=== PATIENT | male | born 1975 | race Two or more races ===

== ENCOUNTER 2022-09-09 16:11 | Inpatient (IN) | payer MEDICARE, MEDICAID ==
[~2022-09-09] VITALS: Ht 177.8 cm; Wt 92.0 kg
[2022-09-09 16:55] LABS: Basophils # (auto) 0.1 10 ^3/uL (0-0.2); Basophils % (auto) 0.5 % (0.0-2.0); Eosinophils # (auto) 0.1 10 ^3/uL (0-0.8); Eosinophils % (auto) 0.6 % (0.0-7.0); Hematocrit 24.1 % (41.0-53.0); Hemoglobin 7.9 g/dL (13.5-17.5); Lymphocytes # (auto) 2.2 10 ^3/uL (0.4-5.4); Lymphocytes % (auto) 20.7 % (10.0-50.0); Mean Corpuscular Hemoglobin 26.9 pg (28.0-32.0); Mean Corpuscular Volume 81.4 fL (80.0-100.0); Monocytes # (auto) 0.8 10 ^3/uL (0-1.3); Monocytes % (auto) 7.8 % (0.0-12.0); Neutrophils # (auto) 7.6 10 ^3/uL (1.6-8.6); Neutrophils % (auto) 70.4 % (37.0-80.0); Red Blood Cells 2.96 10^6/uL (4.5-5.90); White Blood Cell 10.8 10^3/uL (4.4-10.8)
[2022-09-09 17:03] LABS: Albumin 2.5 g/dL (3.4-5.0); Calcium 8.4 mg/dL (8.5-10.1); Potassium 3.7 mmol/L (3.5-5.1)
[2022-09-09 17:06] LABS: BUN/Creatinine Ratio 31.1 (10.0-20.0); Bilirubin, Total 0.2 mg/dL (0.2-1.0); Total Protein 5.6 g/dL (6.4-8.2)
[2022-09-09 17:30] LABS: Red Cell Distribution Width 23.8 % (11.8-14.3)
[2022-09-09] MEDS ORDERED: SODIUM CHLORIDE 0.9% 1,000 ML IV ONE (19:00)
[2022-09-09] MEDS ORDERED: ONDANSETRON HCL 4 MG/2 ML VIAL IV ONE (19:00)
[2022-09-09] MEDS ORDERED: PANTOPRAZOLE 40 MG/10 ML VIAL INJ IV ONE (19:00)
[2022-09-09 20:19] LABS: INR 0.99 (0.9-1.15)
[2022-09-09] MEDS ORDERED: MORPHINE SULFATE INJ 2 MG/ml SYRG IV PRN (20:45)
[2022-09-09] MEDS ORDERED: PANTOPRAZOLE 80 MG in SODIUM CHL 0.9% 100 ML IV ONE (21:30)
[2022-09-09] MEDS: PANTOPRAZOLE 40 MG/10 ML VIAL INJ IV SCH (22:00)
[2022-09-10] VITALS (8 sets, daily range): BP systolic 101–126; BP diastolic 52–67
[2022-09-10 01:21] LABS: Urine Bacteria NONE SEEN /hpf (None Seen); Urine Blood Negative /uL (Negative); Urine WBC 1 /hpf (0 - 3)
[2022-09-10 01:32] LABS: Hemoglobin 6.7 g/dL (13.5-17.5)
[2022-09-10] MEDS: PANTOPRAZOLE 40mg/50ML NS AE 50 ML IV SCH ×6 (02:30→23:03)
[2022-09-10] MEDS: SODIUM CHLORIDE 0.9% 1,000 ML IV SCH ×4 (02:32→23:03)
[2022-09-10 09:20] LABS: Basophils # (auto) 0 10 ^3/uL (0-0.2); Basophils % (auto) 0.5 % (0.0-2.0); Eosinophils # (auto) 0.1 10 ^3/uL (0-0.8); Eosinophils % (auto) 1.3 % (0.0-7.0); Hematocrit 21.6 % (41.0-53.0); Hemoglobin 7.1 g/dL (13.5-17.5); Lymphocytes # (auto) 1.8 10 ^3/uL (0.4-5.4); Lymphocytes % (auto) 27.5 % (10.0-50.0); Mean Corpuscular Hemoglobin 27.1 pg (28.0-32.0); Mean Corpuscular Hgb Conc. 32.9 g/dL (32.0-36.0); Mean Corpuscular Volume 82.5 fL (80.0-100.0); Monocytes # (auto) 0.6 10 ^3/uL (0-1.3); Monocytes % (auto) 9.1 % (0.0-12.0); Neutrophils # (auto) 3.9 10 ^3/uL (1.6-8.6); Neutrophils % (auto) 61.6 % (37.0-80.0); Red Blood Cells 2.62 10^6/uL (4.5-5.90); Red Cell Distribution Width 22.3 % (11.8-14.3); White Blood Cell 6.4 10^3/uL (4.4-10.8)
[2022-09-10 09:37] LABS: Calcium 7.2 mg/dL (8.5-10.1); Potassium 3.6 mmol/L (3.5-5.1)
[2022-09-10 09:45] LABS: BUN/Creatinine Ratio 19.3 (10.0-20.0); Bilirubin, Total 0.4 mg/dL (0.2-1.0); Total Protein 4.6 g/dL (6.4-8.2)
[2022-09-10] MEDS: PANTOPRAZOLE 40 MG/10 ML VIAL INJ IV SCH (11:05)
[2022-09-10 12:07] LABS: Hemoglobin 7.1 g/dL (13.5-17.5)
[2022-09-10 12:10] LABS: Hematocrit 21.1 % (41.0-53.0)
[2022-09-10] MEDS ORDERED: LIDOCAINE 2% (LOCAL ANESTH.) PF 5ml SDV ONE (16:09)
[2022-09-10] MEDS ORDERED: PROPOFOL 10 MG/ML 20 ML IV ONE (16:09)
[2022-09-10] MEDS: SUCRALFATE 1 GM/10 ML ORAL SUSP PO SCH ×2 (17:47→23:03)
[2022-09-10 21:21] LABS: Hemoglobin 7.1 g/dL (13.5-17.5)
[2022-09-10 21:23] LABS: Hematocrit 21.4 % (41.0-53.0)
[2022-09-10] MEDS ORDERED: diphenhdrAMINE HCL 50 MG/1 ML VL IV ONE (21:30)
[2022-09-10] MEDS: ACETAMINOPHEN 325 MG TAB PO PRN (23:04)
[2022-09-11] MEDS: PANTOPRAZOLE 40mg/50ML NS AE 50 ML IV SCH ×5 (03:43→23:30)
[2022-09-11 05:35] VITALS: BP 104/55
[2022-09-11] MEDS: SODIUM CHLORIDE 0.9% 1,000 ML IV SCH ×3 (06:29→22:45)
[2022-09-11] MEDS: SUCRALFATE 1 GM/10 ML ORAL SUSP PO SCH ×4 (06:29→21:18)
[2022-09-11] MEDS: ACETAMINOPHEN 325 MG TAB PO PRN (10:10)
[2022-09-11 13:00] VITALS: BP 110/71
[2022-09-11] MEDS: SERTRALINE HCL 50 MG TAB PO SCH (13:40)
[2022-09-11 17:00] VITALS: BP 110/63
[2022-09-11 21:37] VITALS: BP 129/58
[2022-09-11] MEDS ORDERED: OLANZapine 5 MG TAB PO SCH (22:00)
[2022-09-12] MEDS: PANTOPRAZOLE 40mg/50ML NS AE 50 ML IV SCH ×3 (04:37→16:00)
[2022-09-12 05:00] VITALS: BP 109/54
[2022-09-12] MEDS: SUCRALFATE 1 GM/10 ML ORAL SUSP PO SCH ×3 (06:00→22:04)
[2022-09-12 08:25] VITALS: BP 120/53
[2022-09-12] MEDS: SODIUM CHLORIDE 0.9% 1,000 ML IV SCH ×2 (10:06→15:25)
[2022-09-12] MEDS: SERTRALINE HCL 50 MG TAB PO SCH (10:07)
[2022-09-12 10:26] LABS: Basophils # (auto) 0 10 ^3/uL (0-0.2); Basophils % (auto) 0.4 % (0.0-2.0); Hemoglobin 7.6 g/dL (13.5-17.5); Neutrophils # (auto) 4.5 10 ^3/uL (1.6-8.6); Nucleated Red Blood Cells % 0.1 %
[2022-09-12 10:29] LABS: Eosinophils # (auto) 0.1 10 ^3/uL (0-0.8); Eosinophils % (auto) 0.8 % (0.0-7.0); Hematocrit 22.7 % (41.0-53.0); Lymphocytes # (auto) 1.4 10 ^3/uL (0.4-5.4); Lymphocytes % (auto) 21.2 % (10.0-50.0); Mean Corpuscular Hemoglobin 28.1 pg (28.0-32.0); Mean Corpuscular Hgb Conc. 33.4 g/dL (32.0-36.0); Mean Corpuscular Volume 84.2 fL (80.0-100.0); Monocytes # (auto) 0.4 10 ^3/uL (0-1.3); Monocytes % (auto) 6.9 % (0.0-12.0); Neutrophils % (auto) 70.7 % (37.0-80.0); White Blood Cell 6.4 10^3/uL (4.4-10.8)
[2022-09-12 10:34] LABS: Red Cell Distribution Width 22.8 % (11.8-14.3)
[2022-09-12 13:24] VITALS: BP 111/58
[2022-09-12] MEDS ORDERED: POLYETHYLENE GLYCOL 17 GM PWDR PO ONE (16:45)
[2022-09-12 16:54] VITALS: BP 143/79
[2022-09-12] MEDS: AMPICILLIN & SULBACTAM SODIUM 3 GM in SODIUM CHL 0.9% 100 ML IV SCH (19:42)
[2022-09-12] MEDS: TRIAMCINOLONE ACET 0.1% TOPICAL CREAM 15GM TOP SCH (22:00)
[2022-09-12] MEDS: ACETAMINOPHEN 325 MG TAB PO PRN (22:04)
[2022-09-12] MEDS: PANTOPRAZOLE 40 MG TAB PO SCH (22:04)
[2022-09-12] MEDS ORDERED: OLANZapine 5 MG TAB PO ONE (22:30)
[2022-09-12] MEDS: diphenhdrAMINE HCL 25 MG CAP PO PRN (22:38)
[2022-09-12 23:03] VITALS: BP 120/70
[2022-09-13] MEDS: AMPICILLIN & SULBACTAM SODIUM 3 GM in SODIUM CHL 0.9% 100 ML IV SCH ×4 (01:33→20:05)
[2022-09-13] MEDS: SUCRALFATE 1 GM/10 ML ORAL SUSP PO SCH ×4 (06:02→21:24)
[2022-09-13 08:48] VITALS: BP 118/68
[2022-09-13] MEDS: PANTOPRAZOLE 40 MG TAB PO SCH ×2 (09:05→21:24)
[2022-09-13] MEDS: SERTRALINE HCL 50 MG TAB PO SCH (09:05)
[2022-09-13] MEDS: ACETAMINOPHEN 325 MG TAB PO PRN ×2 (09:06→20:05)
[2022-09-13] MEDS: TRIAMCINOLONE ACET 0.1% TOPICAL CREAM 15GM TOP SCH ×2 (09:07→21:26)
[2022-09-13 12:51] VITALS: BP 114/62
[2022-09-13 13:24] LABS: Basophils # (auto) 0.1 10 ^3/uL (0-0.2); Basophils % (auto) 0.6 % (0.0-2.0); Eosinophils # (auto) 0.1 10 ^3/uL (0-0.8); Eosinophils % (auto) 0.9 % (0.0-7.0); Hematocrit 22.4 % (41.0-53.0); Hemoglobin 7.6 g/dL (13.5-17.5); Lymphocytes # (auto) 1.8 10 ^3/uL (0.4-5.4); Mean Corpuscular Hemoglobin 28.4 pg (28.0-32.0); Monocytes # (auto) 0.6 10 ^3/uL (0-1.3)
[2022-09-13 13:26] LABS: Lymphocytes % (auto) 19.7 % (10.0-50.0); Mean Corpuscular Volume 83.5 fL (80.0-100.0); Monocytes % (auto) 7.1 % (0.0-12.0); Neutrophils # (auto) 6.4 10 ^3/uL (1.6-8.6); Neutrophils % (auto) 71.7 % (37.0-80.0); Red Blood Cells 2.68 10^6/uL (4.5-5.90)
[2022-09-13 13:35] LABS: Red Cell Distribution Width 23.1 % (11.8-14.3)
[2022-09-13 16:51] VITALS: BP 102/51
[2022-09-13] MEDS: diphenhdrAMINE HCL 25 MG CAP PO PRN (20:05)
[2022-09-13 22:00] VITALS: BP 106/56
[2022-09-13] MEDS ORDERED: OLANZapine 5 MG TAB PO SCH (22:00)
[2022-09-14] MEDS: AMPICILLIN & SULBACTAM SODIUM 3 GM in SODIUM CHL 0.9% 100 ML IV SCH ×2 (01:32→08:53)
[2022-09-14 05:00] VITALS: BP 96/53
[2022-09-14] MEDS: SUCRALFATE 1 GM/10 ML ORAL SUSP PO SCH ×4 (06:07→22:07)
[2022-09-14 08:42] LABS: Basophils # (auto) 0.1 10 ^3/uL (0-0.2); Basophils % (auto) 0.8 % (0.0-2.0); Eosinophils # (auto) 0.1 10 ^3/uL (0-0.8); Eosinophils % (auto) 1.3 % (0.0-7.0); Lymphocytes % (auto) 17.9 % (10.0-50.0); Monocytes # (auto) 0.7 10 ^3/uL (0-1.3)
[2022-09-14 08:43] LABS: Hematocrit 22.9 % (41.0-53.0); Hemoglobin 7.7 g/dL (13.5-17.5); Mean Corpuscular Hemoglobin 27.9 pg (28.0-32.0); Mean Corpuscular Hgb Conc. 33.8 g/dL (32.0-36.0); Mean Corpuscular Volume 82.7 fL (80.0-100.0); Neutrophils # (auto) 8.3 10 ^3/uL (1.6-8.6); Red Blood Cells 2.77 10^6/uL (4.5-5.90); White Blood Cell 11.2 10^3/uL (4.4-10.8)
[2022-09-14 08:46] LABS: Red Cell Distribution Width 23.3 % (11.8-14.3)
[2022-09-14 08:51] LABS: BUN/Creatinine Ratio 13.5 (10.0-20.0); Calcium 7.8 mg/dL (8.5-10.1); Potassium 3.7 mmol/L (3.5-5.1)
[2022-09-14] MEDS: PANTOPRAZOLE 40 MG TAB PO SCH ×2 (08:53→22:08)
[2022-09-14] MEDS: SERTRALINE HCL 50 MG TAB PO SCH (08:53)
[2022-09-14 09:00] VITALS: BP 140/85
[2022-09-14] MEDS ORDERED: DOXYCYCLINE 100 MG TAB/CAP PO ONE (10:15)
[2022-09-14] MEDS: TRIAMCINOLONE ACET 0.1% TOPICAL CREAM 15GM TOP SCH ×2 (10:25→22:10)
[2022-09-14 12:26] VITALS: BP 107/50
[2022-09-14 16:37] VITALS: BP 113/62
[2022-09-14 22:00] VITALS: BP 110/63
[2022-09-14] MEDS: OLANZapine 5 MG TAB PO SCH (22:08)
[2022-09-14] MEDS: DOXYCYCLINE 100 MG TAB/CAP PO SCH (22:09)
[2022-09-14] MEDS: diphenhdrAMINE HCL 25 MG CAP PO SCH (22:09)
[2022-09-14] MEDS: ACETAMINOPHEN 325 MG TAB PO PRN (22:15)
[2022-09-15 05:00] VITALS: BP 99/60
[2022-09-15] MEDS: SUCRALFATE 1 GM/10 ML ORAL SUSP PO SCH ×4 (06:34→21:18)
[2022-09-15 09:00] VITALS: BP 109/55
[2022-09-15] MEDS: DOXYCYCLINE 100 MG TAB/CAP PO SCH ×2 (09:23→21:19)
[2022-09-15] MEDS: PANTOPRAZOLE 40 MG TAB PO SCH ×2 (09:23→21:19)
[2022-09-15] MEDS: SERTRALINE HCL 50 MG TAB PO SCH (09:23)
[2022-09-15] MEDS: TRIAMCINOLONE ACET 0.1% TOPICAL CREAM 15GM TOP SCH ×2 (12:39→22:00)
[2022-09-15 13:00] VITALS: BP 110/71
[2022-09-15 17:00] VITALS: BP 104/64
[2022-09-15] MEDS: OLANZapine 5 MG TAB PO SCH (21:18)
[2022-09-15] MEDS: ACETAMINOPHEN 325 MG TAB PO PRN (21:18)
[2022-09-15] MEDS: diphenhdrAMINE HCL 25 MG CAP PO SCH (21:19)
[2022-09-15 22:00] VITALS: BP 125/66
[2022-09-16 05:00] VITALS: BP 107/55
[2022-09-16] MEDS: SUCRALFATE 1 GM/10 ML ORAL SUSP PO SCH ×4 (06:00→22:29)
[2022-09-16] MEDS: ACETAMINOPHEN 325 MG TAB PO PRN ×2 (06:05→22:28)
[2022-09-16 08:00] VITALS: BP 123/70
[2022-09-16 09:00] VITALS: BP 123/70
[2022-09-16] MEDS: DOXYCYCLINE 100 MG TAB/CAP PO SCH ×2 (09:17→22:29)
[2022-09-16] MEDS: SERTRALINE HCL 50 MG TAB PO SCH (09:18)
[2022-09-16] MEDS: PANTOPRAZOLE 40 MG TAB PO SCH ×2 (09:18→22:29)
[2022-09-16] MEDS: TRIAMCINOLONE ACET 0.1% TOPICAL CREAM 15GM TOP SCH ×2 (09:22→22:35)
[2022-09-16 13:00] VITALS: BP 127/74
[2022-09-16 17:00] VITALS: BP 110/57
[2022-09-16 22:00] VITALS: BP 125/70
[2022-09-16] MEDS: OLANZapine 5 MG TAB PO SCH (22:29)
[2022-09-16] MEDS: diphenhdrAMINE HCL 25 MG CAP PO SCH (22:29)
[2022-09-17 05:00] VITALS: BP 123/71
[2022-09-17] MEDS: ACETAMINOPHEN 325 MG TAB PO PRN ×2 (05:21→21:35)
[2022-09-17] MEDS: SUCRALFATE 1 GM/10 ML ORAL SUSP PO SCH ×4 (06:14→21:33)
[2022-09-17 07:03] LABS: Alcohol, Urine < 3.0 mg/dL (0-10); Amphetamine Screen, Urine NEGATIVE (NEGATIVE); Barbiturate Scree,Urine NEGATIVE (NEGATIVE); Benzodiazephine Screen, Urine NEGATIVE (NEGATIVE); Cannabinoid Screen, Urine NEGATIVE (NEGATIVE); Cocaine Screen, Urine NEGATIVE (NEGATIVE); Opiate Scree,Urine NEGATIVE (NEGATIVE); Phencyclidine Screen, Urine NEGATIVE (NEGATIVE)
[2022-09-17 09:00] VITALS: BP 110/51
[2022-09-17] MEDS: PANTOPRAZOLE 40 MG TAB PO SCH ×2 (10:15→21:33)
[2022-09-17] MEDS: DOXYCYCLINE 100 MG TAB/CAP PO SCH ×2 (10:15→21:33)
[2022-09-17] MEDS: SERTRALINE HCL 50 MG TAB PO SCH (10:17)
[2022-09-17] MEDS: TRIAMCINOLONE ACET 0.1% TOPICAL CREAM 15GM TOP SCH ×2 (10:17→21:38)
[2022-09-17 13:00] VITALS: BP 98/49
[2022-09-17 13:14] LABS: Basophils # (auto) 0.1 10 ^3/uL (0-0.2); Eosinophils # (auto) 0.1 10 ^3/uL (0-0.8); Hemoglobin 9.2 g/dL (13.5-17.5); Lymphocytes % (auto) 41.4 % (10.0-50.0); Neutrophils % (auto) 46.1 % (37.0-80.0); Nucleated Red Blood Cells % 0.2 %
[2022-09-17 13:17] LABS: Basophils % (auto) 0.9 % (0.0-2.0); Eosinophils % (auto) 1.2 % (0.0-7.0); Hematocrit 28.7 % (41.0-53.0); Lymphocytes # (auto) 3.8 10 ^3/uL (0.4-5.4); Mean Corpuscular Hemoglobin 26.8 pg (28.0-32.0); Mean Corpuscular Volume 83.8 fL (80.0-100.0); Monocytes % (auto) 10.4 % (0.0-12.0); Neutrophils # (auto) 4.2 10 ^3/uL (1.6-8.6); Red Blood Cells 3.43 10^6/uL (4.5-5.90); Red Cell Distribution Width 22.4 % (11.8-14.3); White Blood Cell 9.2 10^3/uL (4.4-10.8)
[2022-09-17 17:00] VITALS: BP 113/59
[2022-09-17] MEDS: diphenhdrAMINE HCL 25 MG CAP PO SCH (21:33)
[2022-09-17] MEDS: OLANZapine 5 MG TAB PO SCH (21:33)
[2022-09-17 22:00] VITALS: BP 105/51
[2022-09-18 05:00] VITALS: BP 113/73
[2022-09-18] MEDS: SUCRALFATE 1 GM/10 ML ORAL SUSP PO SCH ×4 (06:27→21:22)
[2022-09-18 09:00] VITALS: BP 113/68
[2022-09-18] MEDS: PANTOPRAZOLE 40 MG TAB PO SCH ×2 (09:22→21:22)
[2022-09-18] MEDS: DOXYCYCLINE 100 MG TAB/CAP PO SCH ×2 (09:22→21:23)
[2022-09-18] MEDS: SERTRALINE HCL 50 MG TAB PO SCH (09:22)
[2022-09-18] MEDS: TRIAMCINOLONE ACET 0.1% TOPICAL CREAM 15GM TOP SCH ×2 (11:16→21:28)
[2022-09-18 13:00] VITALS: BP 123/61
[2022-09-18] MEDS: ACETAMINOPHEN 325 MG TAB PO PRN ×2 (13:40→21:23)
[2022-09-18] MEDS: diphenhdrAMINE HCL 25 MG CAP PO SCH (21:22)
[2022-09-18] MEDS: OLANZapine 5 MG TAB PO SCH (21:22)
[2022-09-18 22:00] VITALS: BP 114/62
[2022-09-19 04:59] VITALS: BP 102/44
[2022-09-19] MEDS: SUCRALFATE 1 GM/10 ML ORAL SUSP PO SCH ×4 (06:21→21:12)
[2022-09-19 08:45] VITALS: BP_SYST 102; BP_SYST 152; BP_DIAS 110; BP_DIAS 53
[2022-09-19 08:48] VITALS: BP 102/53
[2022-09-19] MEDS: DOXYCYCLINE 100 MG TAB/CAP PO SCH ×2 (09:05→21:13)
[2022-09-19] MEDS: PANTOPRAZOLE 40 MG TAB PO SCH ×2 (09:05→21:14)
[2022-09-19] MEDS: SERTRALINE HCL 50 MG TAB PO SCH (09:06)
[2022-09-19] MEDS: TRIAMCINOLONE ACET 0.1% TOPICAL CREAM 15GM TOP SCH ×2 (11:49→21:15)
[2022-09-19 12:17] VITALS: BP 128/83
[2022-09-19 16:52] VITALS: BP 101/50
[2022-09-19] MEDS: OLANZapine 5 MG TAB PO SCH (21:13)
[2022-09-19] MEDS: diphenhdrAMINE HCL 25 MG CAP PO SCH (21:13)
[2022-09-19] MEDS: ACETAMINOPHEN 325 MG TAB PO PRN (21:13)
[2022-09-19 22:00] VITALS: BP 97/58
[2022-09-20 05:00] VITALS: BP 130/79
[2022-09-20] MEDS: SUCRALFATE 1 GM/10 ML ORAL SUSP PO SCH ×4 (06:35→21:17)
[2022-09-20 09:00] VITALS: BP 126/77
[2022-09-20] MEDS: SERTRALINE HCL 50 MG TAB PO SCH (09:35)
[2022-09-20] MEDS: PANTOPRAZOLE 40 MG TAB PO SCH ×2 (09:35→21:17)
[2022-09-20] MEDS: DOXYCYCLINE 100 MG TAB/CAP PO SCH ×2 (09:35→21:16)
[2022-09-20] MEDS: TRIAMCINOLONE ACET 0.1% TOPICAL CREAM 15GM TOP SCH ×3 (09:36→21:19)
[2022-09-20 20:51] VITALS: BP 111/68
[2022-09-20] MEDS: diphenhdrAMINE HCL 25 MG CAP PO SCH (21:18)
[2022-09-20] MEDS: ACETAMINOPHEN 325 MG TAB PO PRN (21:18)
[2022-09-20] MEDS: OLANZapine 5 MG TAB PO SCH (21:19)
[2022-09-21 04:52] VITALS: BP 132/79
[2022-09-21] MEDS: SUCRALFATE 1 GM/10 ML ORAL SUSP PO SCH ×4 (06:11→21:24)
[2022-09-21 08:37] VITALS: BP 113/64
[2022-09-21] MEDS: PANTOPRAZOLE 40 MG TAB PO SCH ×2 (09:19→21:25)
[2022-09-21] MEDS: DOXYCYCLINE 100 MG TAB/CAP PO SCH (09:19)
[2022-09-21] MEDS: ACETAMINOPHEN 325 MG TAB PO PRN ×2 (09:24→21:30)
[2022-09-21] MEDS: SERTRALINE HCL 50 MG TAB PO SCH (09:25)
[2022-09-21] MEDS: TRIAMCINOLONE ACET 0.1% TOPICAL CREAM 15GM TOP SCH (10:00)
[2022-09-21] MEDS ORDERED: ENOXAPARIN SOD 40 MG/0.4 ML SYRINGE SC ONE (12:00)
[2022-09-21] MEDS: Pro-Stat SF 30ml Vanilla PO SCH ×2 (14:10→17:31)
[2022-09-21 17:09] VITALS: BP 116/60
[2022-09-21 20:00] VITALS: BP 102/51
[2022-09-21] MEDS: diphenhdrAMINE HCL 25 MG CAP PO SCH (21:24)
[2022-09-21] MEDS: OLANZapine 5 MG TAB PO SCH (21:25)
[2022-09-22 05:00] VITALS: BP 104/64
[2022-09-22] MEDS: SUCRALFATE 1 GM/10 ML ORAL SUSP PO SCH ×4 (06:41→21:24)
[2022-09-22 08:37] VITALS: BP 88/32
[2022-09-22 09:01] LABS: Albumin 2.9 g/dL (3.4-5.0); Calcium 8.7 mg/dL (8.5-10.1); Potassium 4.4 mmol/L (3.5-5.1)
[2022-09-22 09:05] LABS: BUN/Creatinine Ratio 24.2 (10.0-20.0); Bilirubin, Total 0.2 mg/dL (0.2-1.0)
[2022-09-22] MEDS: SERTRALINE HCL 50 MG TAB PO SCH (09:31)
[2022-09-22] MEDS: PANTOPRAZOLE 40 MG TAB PO SCH ×2 (09:31→21:24)
[2022-09-22] MEDS: ACETAMINOPHEN 325 MG TAB PO PRN ×2 (09:34→21:25)
[2022-09-22] MEDS: ENOXAPARIN SOD 40 MG/0.4 ML SYRINGE SC SCH (09:35)
[2022-09-22] MEDS: Pro-Stat SF 30ml Vanilla PO SCH (09:35)
[2022-09-22 12:42] VITALS: BP 125/69
[2022-09-22 13:50] LABS: Basophils % (auto) 0.8 % (0.0-2.0); Eosinophils # (auto) 0.1 10 ^3/uL (0-0.8); Lymphocytes # (auto) 1.9 10 ^3/uL (0.4-5.4)
[2022-09-22 13:51] LABS: Basophils # (auto) 0 10 ^3/uL (0-0.2); Hematocrit 25.8 % (41.0-53.0); Hemoglobin 8.5 g/dL (13.5-17.5); Lymphocytes % (auto) 33.1 % (10.0-50.0); Mean Corpuscular Hemoglobin 26.7 pg (28.0-32.0); Mean Corpuscular Hgb Conc. 32.8 g/dL (32.0-36.0); Mean Corpuscular Volume 81.2 fL (80.0-100.0); Monocytes # (auto) 0.4 10 ^3/uL (0-1.3); Monocytes % (auto) 7.1 % (0.0-12.0); Neutrophils # (auto) 3.3 10 ^3/uL (1.6-8.6); Nucleated Red Blood Cells % 0.1 %; Red Blood Cells 3.18 10^6/uL (4.5-5.90); White Blood Cell 5.8 10^3/uL (4.4-10.8)
[2022-09-22 14:28] LABS: Red Cell Distribution Width 22.6 % (11.8-14.3)
[2022-09-22 16:38] VITALS: BP 105/58
[2022-09-22] MEDS: Ensure HIGH Protein Chocolate 8oz Bottle PO SCH (17:26)
[2022-09-22] MEDS: diphenhdrAMINE HCL 25 MG CAP PO SCH (21:24)
[2022-09-22] MEDS: OLANZapine 5 MG TAB PO SCH (21:25)
[2022-09-22 22:00] VITALS: BP 115/68
[2022-09-23 05:00] VITALS: BP 122/77
[2022-09-23] MEDS: SUCRALFATE 1 GM/10 ML ORAL SUSP PO SCH ×4 (06:24→21:12)
[2022-09-23 08:43] VITALS: BP 107/57
[2022-09-23] MEDS: Ensure HIGH Protein Chocolate 8oz Bottle PO SCH ×3 (09:34→18:08)
[2022-09-23] MEDS: SERTRALINE HCL 50 MG TAB PO SCH (09:41)
[2022-09-23] MEDS: PANTOPRAZOLE 40 MG TAB PO SCH ×2 (09:41→21:11)
[2022-09-23] MEDS: ENOXAPARIN SOD 40 MG/0.4 ML SYRINGE SC SCH ×2 (09:42→09:45)
[2022-09-23 13:04] VITALS: BP 109/61
[2022-09-23 16:45] VITALS: BP 121/56
[2022-09-23] MEDS: OLANZapine 5 MG TAB PO SCH (21:11)
[2022-09-23] MEDS: diphenhdrAMINE HCL 25 MG CAP PO SCH (21:11)
[2022-09-23] MEDS: ACETAMINOPHEN 325 MG TAB PO PRN (21:12)
[2022-09-23 22:00] VITALS: BP 104/56
[2022-09-24] MEDS ORDERED: OXCA600T3 PO (00:31)
[2022-09-24] MEDS ORDERED: TRAZ300T13 PO (00:31)
[2022-09-24] MEDS ORDERED: GABA-339 PO (00:31)
[2022-09-24 05:00] VITALS: BP 114/69
[2022-09-24] MEDS: SUCRALFATE 1 GM/10 ML ORAL SUSP PO SCH ×4 (06:36→21:18)
[2022-09-24 08:48] VITALS: BP 117/58
[2022-09-24] MEDS: ENOXAPARIN SOD 40 MG/0.4 ML SYRINGE SC SCH (10:00)
[2022-09-24] MEDS: PANTOPRAZOLE 40 MG TAB PO SCH ×2 (10:35→21:18)
[2022-09-24] MEDS: SERTRALINE HCL 50 MG TAB PO SCH (10:36)
[2022-09-24] MEDS: Ensure HIGH Protein Chocolate 8oz Bottle PO SCH ×3 (10:38→18:22)
[2022-09-24 16:49] VITALS: BP_SYST 112; BP_SYST 142; BP_DIAS 64; BP_DIAS 69
[2022-09-24] MEDS: OLANZapine 5 MG TAB PO SCH (21:18)
[2022-09-24] MEDS: OXcarbazepine 300 MG TAB PO SCH (21:19)
[2022-09-24] MEDS: diphenhdrAMINE HCL 25 MG CAP PO SCH (21:19)
[2022-09-24] MEDS: ACETAMINOPHEN 325 MG TAB PO PRN (21:25)
[2022-09-24 22:00] VITALS: BP 124/71
[2022-09-25 05:00] VITALS: BP 97/52
[2022-09-25] MEDS: SUCRALFATE 1 GM/10 ML ORAL SUSP PO SCH ×4 (06:11→22:00)
[2022-09-25 09:00] VITALS: BP 117/74
[2022-09-25] MEDS: Ensure HIGH Protein Chocolate 8oz Bottle PO SCH ×3 (09:23→17:34)
[2022-09-25] MEDS: ENOXAPARIN SOD 40 MG/0.4 ML SYRINGE SC SCH (10:00)
[2022-09-25] MEDS: OXcarbazepine 300 MG TAB PO SCH ×2 (12:02→22:01)
[2022-09-25] MEDS: PANTOPRAZOLE 40 MG TAB PO SCH ×2 (12:02→22:00)
[2022-09-25] MEDS: SERTRALINE HCL 50 MG TAB PO SCH (12:03)
[2022-09-25 12:34] VITALS: BP 135/82
[2022-09-25 17:00] VITALS: BP 105/67
[2022-09-25 22:00] VITALS: BP 103/64
[2022-09-25] MEDS: diphenhdrAMINE HCL 25 MG CAP PO SCH (22:00)
[2022-09-25] MEDS: OLANZapine 5 MG TAB PO SCH (22:01)
[2022-09-26] MEDS: SUCRALFATE 1 GM/10 ML ORAL SUSP PO SCH ×4 (06:39→21:26)
[2022-09-26 08:54] VITALS: BP 123/69
[2022-09-26] MEDS: Ensure HIGH Protein Chocolate 8oz Bottle PO SCH ×3 (09:18→18:24)
[2022-09-26] MEDS: OXcarbazepine 300 MG TAB PO SCH ×2 (09:43→21:27)
[2022-09-26] MEDS: SERTRALINE HCL 50 MG TAB PO SCH (09:43)
[2022-09-26] MEDS: PANTOPRAZOLE 40 MG TAB PO SCH ×2 (09:43→21:26)
[2022-09-26] MEDS: ENOXAPARIN SOD 40 MG/0.4 ML SYRINGE SC SCH (09:44)
[2022-09-26 12:40] VITALS: BP 119/67
[2022-09-26 17:00] VITALS: BP_SYST 115; BP_SYST 127; BP_DIAS 55; BP_DIAS 67
[2022-09-26 20:00] VITALS: BP 127/55
[2022-09-26] MEDS: diphenhdrAMINE HCL 25 MG CAP PO SCH (21:26)
[2022-09-26] MEDS: OLANZapine 5 MG TAB PO SCH (21:27)
[2022-09-26] MEDS: ACETAMINOPHEN 325 MG TAB PO PRN (22:45)
[2022-09-27 05:00] VITALS: BP 107/58
[2022-09-27 09:00] VITALS: BP 126/74
[2022-09-27] MEDS: ENOXAPARIN SOD 40 MG/0.4 ML SYRINGE SC SCH (10:00)
[2022-09-27] MEDS: PANTOPRAZOLE 40 MG TAB PO SCH ×2 (10:10→21:18)
[2022-09-27] MEDS: Ensure HIGH Protein Chocolate 8oz Bottle PO SCH ×3 (10:10→17:52)
[2022-09-27] MEDS: SUCRALFATE 1 GM/10 ML ORAL SUSP PO SCH ×4 (10:10→21:17)
[2022-09-27] MEDS: OXcarbazepine 300 MG TAB PO SCH ×2 (10:11→21:18)
[2022-09-27] MEDS: SERTRALINE HCL 50 MG TAB PO SCH (10:11)
[2022-09-27 13:00] VITALS: BP 114/61
[2022-09-27] MEDS: GABAPENTIN 300 MG CAP PO SCH ×2 (15:46→21:17)
[2022-09-27 17:00] VITALS: BP 132/72
[2022-09-27 20:00] VITALS: BP 120/77
[2022-09-27] MEDS: diphenhdrAMINE HCL 25 MG CAP PO SCH (21:17)
[2022-09-27] MEDS: OLANZapine 5 MG TAB PO SCH (21:19)
[2022-09-27 22:00] VITALS: BP 120/77
[2022-09-28 04:39] VITALS: BP 120/77
[2022-09-28] MEDS: GABAPENTIN 300 MG CAP PO SCH ×3 (06:07→22:08)
[2022-09-28] MEDS: SUCRALFATE 1 GM/10 ML ORAL SUSP PO SCH ×4 (06:07→22:06)
[2022-09-28 09:00] VITALS: BP 116/72
[2022-09-28] MEDS: OXcarbazepine 300 MG TAB PO SCH ×2 (09:36→22:09)
[2022-09-28] MEDS: SERTRALINE HCL 50 MG TAB PO SCH (09:36)
[2022-09-28] MEDS: PANTOPRAZOLE 40 MG TAB PO SCH ×2 (09:36→22:08)
[2022-09-28] MEDS: Ensure HIGH Protein Chocolate 8oz Bottle PO SCH ×3 (09:37→18:14)
[2022-09-28] MEDS: ACETAMINOPHEN 325 MG TAB PO PRN ×2 (09:38→22:10)
[2022-09-28] MEDS: ENOXAPARIN SOD 40 MG/0.4 ML SYRINGE SC SCH (10:00)
[2022-09-28 13:00] VITALS: BP 125/75
[2022-09-28] MEDS: clonazePAM 0.5 MG TAB PO PRN (14:47)
[2022-09-28 17:00] VITALS: BP 115/49
[2022-09-28 22:00] VITALS: BP 121/73
[2022-09-28] MEDS: traZODone HCL 50 MG TAB PO SCH (22:07)
[2022-09-28] MEDS: diphenhdrAMINE HCL 25 MG CAP PO SCH (22:07)
[2022-09-28] MEDS: OLANZapine 5 MG TAB PO SCH (22:09)
[2022-09-29 05:00] VITALS: BP 118/59
[2022-09-29] MEDS: GABAPENTIN 300 MG CAP PO SCH ×3 (06:14→21:46)
[2022-09-29] MEDS: ACETAMINOPHEN 325 MG TAB PO PRN ×2 (06:15→21:50)
[2022-09-29] MEDS: clonazePAM 0.5 MG TAB PO PRN ×2 (06:15→21:49)
[2022-09-29] MEDS: SUCRALFATE 1 GM/10 ML ORAL SUSP PO SCH ×4 (06:15→21:45)
[2022-09-29] MEDS: Ensure HIGH Protein Chocolate 8oz Bottle PO SCH ×3 (08:00→17:50)
[2022-09-29] MEDS: SERTRALINE HCL 50 MG TAB PO SCH (08:42)
[2022-09-29] MEDS: OXcarbazepine 300 MG TAB PO SCH ×2 (08:42→21:47)
[2022-09-29] MEDS: PANTOPRAZOLE 40 MG TAB PO SCH ×2 (08:42→21:47)
[2022-09-29] MEDS: diphenhdrAMINE HCL 25 MG CAP PO SCH (21:45)
[2022-09-29] MEDS: traZODone HCL 50 MG TAB PO SCH (21:46)
[2022-09-29] MEDS: OLANZapine 5 MG TAB PO SCH (21:48)
[2022-09-29 22:00] VITALS: BP 136/76
[2022-09-30 04:34] VITALS: BP 130/73
[2022-09-30] MEDS: GABAPENTIN 300 MG CAP PO SCH ×3 (06:25→22:04)
[2022-09-30] MEDS: SUCRALFATE 1 GM/10 ML ORAL SUSP PO SCH ×4 (06:26→22:06)
[2022-09-30 09:00] VITALS: BP 115/65
[2022-09-30] MEDS: PANTOPRAZOLE 40 MG TAB PO SCH ×2 (09:04→22:05)
[2022-09-30] MEDS: SERTRALINE HCL 50 MG TAB PO SCH (09:04)
[2022-09-30] MEDS: OXcarbazepine 300 MG TAB PO SCH ×2 (09:04→22:04)
[2022-09-30] MEDS: Ensure HIGH Protein Chocolate 8oz Bottle PO SCH ×3 (09:05→17:33)
[2022-09-30] MEDS: ACETAMINOPHEN 325 MG TAB PO PRN ×3 (09:06→22:12)
[2022-09-30] MEDS: clonazePAM 0.5 MG TAB PO PRN ×2 (09:06→22:12)
[2022-09-30 13:00] VITALS: BP 106/67
[2022-09-30 16:57] VITALS: BP 111/71
[2022-09-30 22:00] VITALS: BP 116/69
[2022-09-30] MEDS: diphenhdrAMINE HCL 25 MG CAP PO SCH (22:03)
[2022-09-30] MEDS: traZODone HCL 50 MG TAB PO SCH (22:05)
[2022-09-30] MEDS: OLANZapine 5 MG TAB PO SCH (22:07)
[2022-10-01 05:00] VITALS: BP 123/75
[2022-10-01] MEDS: GABAPENTIN 300 MG CAP PO SCH ×3 (06:32→22:24)
[2022-10-01] MEDS: SUCRALFATE 1 GM/10 ML ORAL SUSP PO SCH ×4 (06:32→22:23)
[2022-10-01] MEDS: ACETAMINOPHEN 325 MG TAB PO PRN ×2 (06:39→22:25)
[2022-10-01] MEDS: SERTRALINE HCL 50 MG TAB PO SCH (08:56)
[2022-10-01] MEDS: Ensure HIGH Protein Chocolate 8oz Bottle PO SCH ×3 (08:57→17:33)
[2022-10-01] MEDS: OXcarbazepine 300 MG TAB PO SCH ×2 (08:57→22:24)
[2022-10-01] MEDS: clonazePAM 0.5 MG TAB PO PRN ×3 (08:57→22:31)
[2022-10-01] MEDS: PANTOPRAZOLE 40 MG TAB PO SCH ×2 (08:57→22:24)
[2022-10-01 09:00] VITALS: BP 134/74
[2022-10-01 13:00] VITALS: BP 119/73
[2022-10-01 17:00] VITALS: BP 140/80
[2022-10-01] MEDS: diphenhdrAMINE HCL 25 MG CAP PO SCH (22:23)
[2022-10-01] MEDS: traZODone HCL 50 MG TAB PO SCH (22:24)
[2022-10-01] MEDS: OLANZapine 5 MG TAB PO SCH (22:25)
[2022-10-02] MEDS: GABAPENTIN 300 MG CAP PO SCH ×3 (06:23→21:17)
[2022-10-02] MEDS: SUCRALFATE 1 GM/10 ML ORAL SUSP PO SCH ×4 (06:25→21:16)
[2022-10-02 08:30] VITALS: BP 117/76
[2022-10-02] MEDS: ACETAMINOPHEN 325 MG TAB PO PRN ×2 (09:34→21:20)
[2022-10-02] MEDS: OXcarbazepine 300 MG TAB PO SCH ×2 (09:35→21:19)
[2022-10-02] MEDS: PANTOPRAZOLE 40 MG TAB PO SCH ×2 (09:35→21:20)
[2022-10-02] MEDS: clonazePAM 0.5 MG TAB PO PRN ×2 (09:36→21:25)
[2022-10-02] MEDS: SERTRALINE HCL 50 MG TAB PO SCH (09:38)
[2022-10-02] MEDS: Ensure HIGH Protein Chocolate 8oz Bottle PO SCH ×3 (11:40→18:27)
[2022-10-02 13:00] VITALS: BP 118/79
[2022-10-02 18:00] VITALS: BP 115/79
[2022-10-02] MEDS: traZODone HCL 50 MG TAB PO SCH (21:16)
[2022-10-02] MEDS: diphenhdrAMINE HCL 25 MG CAP PO SCH (21:17)
[2022-10-02] MEDS: OLANZapine 5 MG TAB PO SCH (21:18)
[2022-10-02 22:00] VITALS: BP 110/75
[2022-10-03 05:00] VITALS: BP 104/72
[2022-10-03] MEDS: GABAPENTIN 300 MG CAP PO SCH ×3 (05:51→21:55)
[2022-10-03] MEDS: SUCRALFATE 1 GM/10 ML ORAL SUSP PO SCH ×4 (05:51→22:00)
[2022-10-03] MEDS: Ensure HIGH Protein Chocolate 8oz Bottle PO SCH ×3 (08:00→18:00)
[2022-10-03 08:58] VITALS: BP 117/65
[2022-10-03] MEDS: ACETAMINOPHEN 325 MG TAB PO PRN ×2 (09:35→21:57)
[2022-10-03] MEDS: PANTOPRAZOLE 40 MG TAB PO SCH ×2 (09:35→21:54)
[2022-10-03] MEDS: OXcarbazepine 300 MG TAB PO SCH ×2 (09:35→21:52)
[2022-10-03] MEDS: clonazePAM 0.5 MG TAB PO PRN ×2 (09:36→21:55)
[2022-10-03] MEDS: SERTRALINE HCL 50 MG TAB PO SCH (09:36)
[2022-10-03 13:00] VITALS: BP 110/62
[2022-10-03 17:00] VITALS: BP 119/74
[2022-10-03] MEDS: traZODone HCL 50 MG TAB PO SCH (21:53)
[2022-10-03] MEDS: diphenhdrAMINE HCL 25 MG CAP PO SCH (21:54)
[2022-10-03] MEDS: ONDANSETRON HCL 4 MG/2 ML VIAL IV PRN (21:56)
[2022-10-03] MEDS: OLANZapine 5 MG TAB PO SCH (22:06)
[2022-10-04] MEDS: GABAPENTIN 300 MG CAP PO SCH ×3 (06:33→21:35)
[2022-10-04] MEDS: SUCRALFATE 1 GM/10 ML ORAL SUSP PO SCH ×4 (06:33→21:35)
[2022-10-04] MEDS: ACETAMINOPHEN 325 MG TAB PO PRN (06:42)
[2022-10-04] MEDS: Ensure HIGH Protein Chocolate 8oz Bottle PO SCH ×3 (08:00→17:42)
[2022-10-04] MEDS: OXcarbazepine 300 MG TAB PO SCH ×2 (09:06→21:37)
[2022-10-04] MEDS: PANTOPRAZOLE 40 MG TAB PO SCH ×2 (09:06→21:40)
[2022-10-04] MEDS: clonazePAM 0.5 MG TAB PO PRN (09:07)
[2022-10-04] MEDS: SERTRALINE HCL 50 MG TAB PO SCH (10:00)
[2022-10-04 10:10] VITALS: BP 110/68
[2022-10-04] MEDS: HYDROcodone-ACET 5/325MG TAB PO PRN ×2 (13:21→21:39)
[2022-10-04 16:06] VITALS: BP 120/73
[2022-10-04 20:00] VITALS: BP 127/67
[2022-10-04] MEDS: traZODone HCL 50 MG TAB PO SCH (21:37)
[2022-10-04] MEDS: OLANZapine 5 MG TAB PO SCH (21:37)
[2022-10-04] MEDS: diphenhdrAMINE HCL 25 MG CAP PO SCH (21:39)
[2022-10-04] MEDS: DOCUSATE SOD 100 MG CAP PO SCH (21:39)
[2022-10-05] MEDS: GABAPENTIN 300 MG CAP PO SCH ×3 (06:25→22:14)
[2022-10-05] MEDS: SUCRALFATE 1 GM/10 ML ORAL SUSP PO SCH ×4 (06:25→22:13)
[2022-10-05] MEDS: Ensure HIGH Protein Chocolate 8oz Bottle PO SCH ×3 (07:44→18:13)
[2022-10-05 08:00] VITALS: BP 110/70
[2022-10-05 09:00] VITALS: BP 125/65
[2022-10-05] MEDS: OLANZapine 5 MG TAB PO SCH ×2 (09:48→22:27)
[2022-10-05] MEDS: DOCUSATE SOD 100 MG CAP PO SCH ×2 (09:48→22:17)
[2022-10-05] MEDS: OXcarbazepine 300 MG TAB PO SCH ×2 (09:48→22:00)
[2022-10-05] MEDS: SERTRALINE HCL 50 MG TAB PO SCH (09:48)
[2022-10-05] MEDS: PANTOPRAZOLE 40 MG TAB PO SCH ×2 (09:48→22:16)
[2022-10-05] MEDS: ONDANSETRON HCL 4 MG/2 ML VIAL IV PRN ×2 (09:49→18:40)
[2022-10-05] MEDS: clonazePAM 0.5 MG TAB PO PRN ×2 (09:49→18:40)
[2022-10-05] MEDS: HYDROcodone-ACET 5/325MG TAB PO PRN ×2 (11:23→18:40)
[2022-10-05 13:00] VITALS: BP 129/71
[2022-10-05 16:22] VITALS: BP 110/70
[2022-10-05 20:00] VITALS: BP 132/64
[2022-10-05 21:36] VITALS: BP 132/64
[2022-10-05] MEDS: traZODone HCL 50 MG TAB PO SCH (22:14)
[2022-10-05] MEDS: diphenhdrAMINE HCL 25 MG CAP PO SCH (22:15)
[2022-10-06] VITALS (7 sets, daily range): BP systolic 109–137; BP diastolic 62–85
[2022-10-06] MEDS: GABAPENTIN 300 MG CAP PO SCH ×3 (06:00→22:24)
[2022-10-06] MEDS: SUCRALFATE 1 GM/10 ML ORAL SUSP PO SCH ×4 (06:00→22:23)
[2022-10-06] MEDS: ONDANSETRON HCL 4 MG/2 ML VIAL IV PRN ×3 (06:00→22:24)
[2022-10-06] MEDS: HYDROcodone-ACET 5/325MG TAB PO PRN (06:01)
[2022-10-06] MEDS: clonazePAM 0.5 MG TAB PO PRN ×2 (06:02→18:18)
[2022-10-06] MEDS: Ensure HIGH Protein Chocolate 8oz Bottle PO SCH ×3 (07:15→17:41)
[2022-10-06] MEDS: PANTOPRAZOLE 40 MG TAB PO SCH ×2 (10:39→22:24)
[2022-10-06] MEDS: DOCUSATE SOD 100 MG CAP PO SCH ×2 (10:39→22:00)
[2022-10-06] MEDS: OXcarbazepine 300 MG TAB PO SCH ×2 (10:39→22:25)
[2022-10-06] MEDS: SERTRALINE HCL 50 MG TAB PO SCH (10:39)
[2022-10-06] MEDS: OLANZapine 5 MG TAB PO SCH ×2 (10:40→22:24)
[2022-10-06] MEDS: HYDROcodone-ACET 7.5/325MG TAB PO PRN ×3 (12:01→22:24)
[2022-10-06] MEDS: diphenhdrAMINE HCL 25 MG CAP PO SCH (22:24)
[2022-10-06] MEDS: traZODone HCL 50 MG TAB PO SCH (22:25)
[2022-10-07 05:14] VITALS: BP 110/70
[2022-10-07] MEDS: SUCRALFATE 1 GM/10 ML ORAL SUSP PO SCH ×4 (06:04→20:14)
[2022-10-07] MEDS: HYDROcodone-ACET 7.5/325MG TAB PO PRN ×2 (06:04→20:11)
[2022-10-07] MEDS: GABAPENTIN 300 MG CAP PO SCH ×3 (06:05→20:13)
[2022-10-07] MEDS: ONDANSETRON HCL 4 MG/2 ML VIAL IV PRN ×2 (06:06→20:12)
[2022-10-07] MEDS: clonazePAM 0.5 MG TAB PO PRN ×2 (06:07→20:12)
[2022-10-07 08:00] VITALS: BP_SYST 117; BP_SYST 133; BP_DIAS 71; BP_DIAS 72
[2022-10-07 08:36] LABS: Hemoglobin 8.1 g/dL (13.5-17.5); Mean Corpuscular Volume 75.8 fL (80.0-100.0); Monocytes # (auto) 0.8 10 ^3/uL (0-1.3)
[2022-10-07 08:38] LABS: Basophils # (auto) 0.1 10 ^3/uL (0-0.2); Basophils % (auto) 0.8 % (0.0-2.0); Eosinophils # (auto) 0.1 10 ^3/uL (0-0.8); Lymphocytes % (auto) 26.3 % (10.0-50.0); Mean Corpuscular Hemoglobin 24.7 pg (28.0-32.0); Mean Corpuscular Hgb Conc. 32.6 g/dL (32.0-36.0); Monocytes % (auto) 10.1 % (0.0-12.0); Neutrophils # (auto) 4.6 10 ^3/uL (1.6-8.6); Neutrophils % (auto) 60.8 % (37.0-80.0); White Blood Cell 7.5 10^3/uL (4.4-10.8)
[2022-10-07 08:47] LABS: BUN/Creatinine Ratio 12.1 (10.0-20.0); Calcium 9.3 mg/dL (8.5-10.1); Potassium 4.2 mmol/L (3.5-5.1)
[2022-10-07 08:52] LABS: Red Cell Distribution Width 23.8 % (11.8-14.3)
[2022-10-07] MEDS: DOCUSATE SOD 100 MG CAP PO SCH ×2 (09:34→20:13)
[2022-10-07] MEDS: OLANZapine 5 MG TAB PO SCH ×2 (09:34→22:00)
[2022-10-07] MEDS: PANTOPRAZOLE 40 MG TAB PO SCH ×2 (09:34→20:13)
[2022-10-07] MEDS: Ensure HIGH Protein Chocolate 8oz Bottle PO SCH ×3 (09:35→18:20)
[2022-10-07] MEDS: SERTRALINE HCL 50 MG TAB PO SCH (09:35)
[2022-10-07] MEDS: OXcarbazepine 300 MG TAB PO SCH ×2 (09:35→20:14)
[2022-10-07 13:00] VITALS: BP 128/79
[2022-10-07 17:26] VITALS: BP 133/81
[2022-10-07] MEDS: traZODone HCL 50 MG TAB PO SCH (21:26)
[2022-10-07] MEDS: diphenhdrAMINE HCL 25 MG CAP PO SCH (21:27)
[2022-10-07 21:28] VITALS: BP 128/60
[2022-10-08] MEDS: HYDROcodone-ACET 7.5/325MG TAB PO PRN (02:54)
[2022-10-08] MEDS: GABAPENTIN 300 MG CAP PO SCH ×2 (05:32→14:38)
[2022-10-08] MEDS: SUCRALFATE 1 GM/10 ML ORAL SUSP PO SCH ×3 (06:22→17:00)
[2022-10-08] MEDS: clonazePAM 0.5 MG TAB PO PRN (06:33)
[2022-10-08 08:00] VITALS: BP 117/72
[2022-10-08] MEDS: Ensure HIGH Protein Chocolate 8oz Bottle PO SCH ×3 (08:00→18:00)
[2022-10-08] MEDS: OXcarbazepine 300 MG TAB PO SCH (09:58)
[2022-10-08] MEDS: DOCUSATE SOD 100 MG CAP PO SCH (09:58)
[2022-10-08] MEDS: SERTRALINE HCL 50 MG TAB PO SCH (09:59)
[2022-10-08] MEDS: OLANZapine 5 MG TAB PO SCH (09:59)
[2022-10-08] MEDS: PANTOPRAZOLE 40 MG TAB PO SCH (09:59)
[2022-10-08] MEDS: ONDANSETRON HCL 4 MG/2 ML VIAL IV PRN (13:02)
[2022-10-08] MEDS ORDERED: LIDOCAINE VISCOUS 2% 15ML UD MT PRN (14:00)
== END 2022-10-08 18:13 | DRG 811 ==
LOC: ER 16:11 → TELE 20:42 → TELE-WESTW 09-10 17:10 → WEST WING 09-13 10:53
PROVIDERS: ADMIT Nurse Practitioner Family; ATTEND Internal Medicine Pulmonary Disease
PROC: 0DB98ZX Excision of Duodenum, Via Natural or Artificial Opening Endoscopic, Diagnostic (ICD-10-PCS; 2022-09-10)
PROC: 0DB68ZX Excision of Stomach, Via Natural or Artificial Opening Endoscopic, Diagnostic (ICD-10-PCS; 2022-09-10)
PROC: 0DB58ZX Excision of Esophagus, Via Natural or Artificial Opening Endoscopic, Diagnostic (ICD-10-PCS; 2022-09-10)
PROC: 30233N1 Transfusion of Nonautologous Red Blood Cells into Peripheral Vein, Percutaneous Approach (ICD-10-PCS; principal; 2022-09-10 16:13)
DX: D62 Acute posthemorrhagic anemia (principal); E43 Unspecified severe protein-calorie malnutrition; K22.11 Ulcer of esophagus with bleeding; K29.71 Gastritis, unspecified, with bleeding; K29.81 Duodenitis with bleeding; R45.851 Suicidal ideations; E87.1 Hypo-osmolality and hyponatremia; L03.116 Cellulitis of left lower limb; L03.114 Cellulitis of left upper limb; E86.0 Dehydration; F25.0 Schizoaffective disorder, bipolar type; F41.9 Anxiety disorder, unspecified; F19.10 Other psychoactive substance abuse, uncomplicated; F15.10 Other stimulant abuse, uncomplicated; F17.290 Nicotine dependence, other tobacco product, uncomplicated; K44.9 Diaphragmatic hernia without obstruction or gangrene; Z59.00 Homelessness unspecified; Z86.16 Personal history of COVID-19; Z68.24 Body mass index [BMI] 24.0-24.9, adult; Z91.51 Personal history of suicidal behavior
CPT/HCPCS: 36415; 36430; 74176; 80048; 80053; 80307; 81001; 84132; 85014; 85018; 85025; 85610; 86850; 86900; 86901; 86920; 87426; 96365; 96375; 99291; C9113; G0378; J2001; J2405; J2704